=== PATIENT | female | born 1945 | race Caucasian/White ===

== ENCOUNTER → 2024-07-18 16:19 | Outpatient (REF) | payer MEDICARE, BC, SELFPAY | LOC: PAVMRI 16:19 | PROVIDERS: ATTENDING PHYSICIAN Specialist; FAMILY PHYSICIAN Family Medicine | DX: G30.1 Alzheimer's disease with late onset (principal) | CPT/HCPCS: 70551 ==

== ENCOUNTER 2024-10-31 14:22 | Emergency (ER) | payer MEDICARE, BC, SELFPAY ==
[2024-10-31 14:25] VITALS: BP 143/112
[2024-10-31 15:10] LABS: % Basophils 0.6 % (0-2); % Immature Granulocytes 0.8 % (0-0.5); % Lymphocytes 28.4 % (20.5-51.1); % Monocytes 6.3 % (1.7-9.3); % Neutrophils 62.9 % (42.2-75.2); Absolute Eosinophils 0.1 10^3/uL (0-0.7); Absolute Lymphocytes 1.5 10^3/uL (1.2-3.4); Absolute Monocytes 0.3 10^3/uL (0.1-0.6); Absolute Neutrophils 3.2 10^3/uL (1.4-6.5); Hematocrit 41.3 % (37.0-47.0); Hemoglobin 13.9 g/dL (12.0-16.0); Mean Corp Hgb Conc. 33.7 g/dL (33.0-37.0); Mean Corpuscular Hgb 30.9 pg (27.0-31.0); Mean Corpuscular Volume 91.8 fL (81.0-99.0); Mean Platelet Volume 9.6 fL (7.4-10.4); Nucleated Red Blood Cells % 0 %; Platelet Count 210 10^3/uL (130-400); Red Cell Dist. Width 12.3 % (11.5-14.5); White Blood Cell Count 5.1 10^3/uL (4.8-10.8)
[2024-10-31 15:28] LABS: ALT (SGPT) 15 U/L (0-35); AST (SGOT) 24 U/L (14-36); Albumin 4.1 g/dl (3.5-5.0); Alkaline Phosphatase 68 U/L (38-126); Blood Urea Nitrogen 10 mg/dl (7-17); Calcium 9.1 mg/dl (8.4-10.2); Carbon Dioxide 27 mmol/L (22-30); Chloride 104 mmol/L (98-107); Glucose 118 mg/dl (70-99); Potassium 4.1 mmol/L (3.5-5.1); Sodium 137 mmol/L (135-145); Total Bilirubin 0.8 mg/dl (0.2-1.3); Total Protein 6.6 g/dl (6.3-8.2); eGFR > 60.00
[2024-10-31 15:57] VITALS: BP 134/75
[2024-10-31 16:00] VITALS: BMI 24.6
--- NOTE | 2024-10-31 16:44 | ED.GENMED ---
History of Present Illness
General
Chief Complaint: Dizziness
Source: patient and spouse
Exam Limitations: none
Time Seen by Provider: 10/31/24 16:04
Nursing documentation reviewed up to this point in time: agreed with
History of Present Illness
History of Present Illness:
Patient to ED with complaint of dizziness. Symptms started overnight. Spouse states she has been taking doneprazil x 1mos for early alzheimers. He reports she has been extrememly fatigued while on this medication. Neuro stopped med yesterday.
Last PM dizzness started. Spouse reports fatigue has resolved. Denies fever/chills, recent illnes. No other complaints.
Past History
Past History
ED Past Medical History: Other (Status post fractured ankle, GERD, cholecystectomy, lines disease, recent left ankle surgery)
ED Past Surgical History: None
Patient has exhibited threatening behavior?: No
Social History
Tobacco: Non-smoker
Alcohol: None
Drug: None
Personal:
Living: with family
Family History
Family History: Other (Colon polyps)
Review of Systems
Review of Systems
Allergies reviewed?: Yes
All Other Systems: ROS reviewed and negative except as documented in HPI and ROS
Constitutional: Reports no symptoms
EENT: Reports no symptoms
Respiratory: Reports no symptoms
Cardiac: Reports no symptoms
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
: Reports no symptoms
Musculoskeletal: Reports no symptoms
Skin: Reports no symptoms
Neurological: Reports dizzy
Psychiatric: Reports no symptoms
Phy Exam
General Physical Exam
General Presentation: well appearing and no apparent distress
General age: appears stated age
General Skin: warm and dry
General Habitus: normal
General Hydration: appears well hydrated
Cardiovascular Exam
Cardiovascular Exam: regular rate/rhythm and no edema
Pulmonary Exam
Pulmonary Exam: lungs clear and no respiratory distress
Gastrointestinal Exam
Gastrointestinal Exam: normal bowel sounds and non tender
Neurological Exam
Neurological Exam: alert, oriented x3, CN II-XII intact, no motor deficits, no sensory deficits, speech normal and normal gait
Musculoskeletal Exam
Musculoskeletal Exam: full ROM and neuro vasc intact
Skin Exam
Skin Exam: normal color, warm/dry and no rash
Psychiatric Exam
Psychiatric Exam: normal mood/affect
Course
Orders/Labs/Results
Orders:
Orders
10/31/24 14:33
ECG [Electrocardiogram (*1)] Urgent
Reason for Study: Vertigo / Dizzy
EKG- Treatment ONCE
10/31/24 14:44
Complete Blood Count/With Diff Urgent
Comprehensive Metabolic Panel Urgent
10/31/24 16:43
CT Head W/o Iv Contrast Urgent
Comment:
Reason For Exam: dizzy
10/31/24 16:46
Ondansetron Orally Disint [Zofran Odt (Orally Disintegrating)] 4 mg PO NOW STA
10/31/24 16:53
Urinalysis Reflex To Culture Urgent
Date Specimen was Collected: 10/31/24
Time Specimen was Collected: 16:51
10/31/24 20:04
Ondansetron Orally Disint [Zofran Odt (Orally Disintegrating)] 4 mg PO NOW STA
Abnormal Lab Results
10/31/24 10/31/24
14:44 16:53
Immature Gran % 0.8 H %
(0-0.5)
Glucose 118 H mg/dl
(70-99)
Urine Ketones 3+ A
(Negative)
10/31/24 14:44
10/31/24 14:44
Vital Signs
Initial and Last Documented VS:
Initial Vital Signs
Temp Pulse Resp BP Pulse Ox
98.1 F 82 20 143/112 96
10/31/24 14:25 10/31/24 14:25 10/31/24 14:25 10/31/24 14:25 10/31/24 14:25
Last Documented Vital Signs
Temp Pulse Resp BP Pulse Ox
98.1 F 73 20 122/74 94
10/31/24 14:25 10/31/24 20:00 10/31/24 20:00 10/31/24 18:00 10/31/24 18:45
*Radiology
Radiology exam reviewed: radiology read reviewed
*Pulse Oximetry
Patient hypoxic: no
*Critical Care Note
Total Time (30-74mins, 75-104mins- exclusive of procedures): Not Applicable
ED Attending Note
-
Portions of this chart may have been created with voice recognition software.� Occasional wrong word or��sound alike� substitutions may have occurred due to the inherent limitations of voice recognition software.
Discharge Plan
Departure
Patient Disposition: Home (Routine Discharge)
Date of Disposition: 10/31/24
Time of Disposition: 20:02
Patient with high blood pressure during this ER visit?: No
Condition: Good
Covid-19: Not Applicable
Discharge Problem:
Dizziness
Instructions: Vertigo (a Type of Dizziness) (DC)
Prescriptions:
New
ondansetron 4 mg tablet,disintegrating
4 mg PO Q8H PRN (Reason: nausea and vomiting) 4 Days Qty: 12 0RF
No Action
ascorbic acid (vitamin C) [Vitamin C] 500 MG tablet
500 mg PO BID
acetaminophen [Tylenol Extra Strength] 500 MG tablet
1,000 mg PO DAILYPRN PRN (Reason: mild pain)
Lactobacillus acidophilus [Acidophilus] 1 CAP capsule
1 cap PO BID
Patient Comments:
10 Billion Unit
melatonin 1 MG tablet
1 mg PO HSPRN PRN (Reason: sleep)
cholecalciferol (vitamin D3) 1,000 UNITS tablet
2,500 units PO QPM
coenzyme [id number] [Co Q-10 (with Vit E)] 1 EACH capsule
2 ea PO DAILY
salmon oil-omega-3 fatty acids 1 CAP capsule
1 cap PO DAILY
vitamin E (dl, acetate) 400 UNITS capsule
400 units PO DAILY
multivitamin with folic acid [Tab-A-Skye] 1 TABLET tablet
1 tab PO DAILY
Calcium/Magnesium/Vitamin D3
2 tab PO QPM
Progesterone Cream
1 applic topical DAILY
Referrals:
UNKNOWN - PT DOES,NOT KNOW [Unknown Provider] -
Activity Restrictions/Additional Instructions:
Follow up with your family doctor in the AM
Interventions
Interventions:
*Risk Screen - Suicide Last Done: 10/31/24 16:01
*General Assessment Last Done: 10/31/24 16:01
*ED- Fall Risk Assessment Last Done: 10/31/24 16:01
*ED COVID-19 Vaccine History Last Done: 10/31/24 16:01
*Nursing Disposition Last Done: 10/31/24 20:35
ED- Neurological Assessment Last Done: 10/31/24 18:29
ED- Cardiac Assessment Last Done: 10/31/24 20:36
Discharge Date and Time
Discharge Date/Time: 10/31/24 20:35
Print Language: GERMAN
[2024-10-31 17:00] VITALS: BP 123/78
[2024-10-31 17:02] LABS: Urine Albumin Negative (Neg - Trace); Urine Bilirubin Negative (Negative); Urine Character Clear (Clear); Urine Color Yellow; Urine Glucose Negative (Negative); Urine Ketone 3+ (Negative); Urine Leukocyte Negative (Negative); Urine Nitrite Negative (Negative); Urine Occult Blood Negative (Negative); Urine Urobilinogen Negative (Neg - 1+)
[2024-10-31] MEDS: ZOFRAN ODT (ORALLY DISINTEGRATING) 4 MG PO ×2 (17:26→20:10)
[2024-10-31 18:00] VITALS: BP 122/74
== END 2024-10-31 20:35 | disposition home or self-care (01) ==
LOC: EMR 14:22
PROVIDERS: Nurse Practitioner; EMERGENCY PHYSICIAN Emergency Medicine; FAMILY PHYSICIAN Family Medicine
DX: R42 Dizziness and giddiness (principal); G30.9 Alzheimer's disease, unspecified
CPT/HCPCS: 99285; 70450; 80053; 81003; 85025; 93005